=== PATIENT | male | born 1995 | race Caucasian/White ===

== ENCOUNTER 2017-04-13 15:50 | Emergency (ER) | payer OTHER ==
[2017-04-13] MEDS ORDERED: Lidocaine 1% with EPINEPHrine 1:100,000 10 ML MDV INJECT ONE (17:26)
[2017-04-13] MEDS ORDERED: Lidocaine 1% 20 ML MDV ONE (17:31)
[2017-04-13] MEDS ORDERED: Bacitracin Oint 1 GM U/D Packet TOP ONE (17:56)
[2017-04-13] MEDS ORDERED: Bacitracin Oint 1 GM U/D Packet ONE (17:57)
--- NOTE | 2017-04-13 18:10 | EDM.PDOC ---
ED HPI GENERAL MEDICAL PROBLEM - General Chief Complaint: Laceration Stated Complaint: SPLIT CHIN Time Seen by Provider: 04/13/17 17:30 Source of Information: Reports: Patient History Limitations: Reports: No Limitations - History of Present Illness INITIAL COMMENTS - FREE TEXT/NARRATIVE: 21 year old male that presents with a laceration of the chin. Patient fell and hit his chin on the floor at about 4pm. He presents for stitches. He has no other acute concerns at this time. Onset: Today - Related Data Allergies Allergy/AdvReac Type Severity Reaction Status Date / Time No Known Allergies Allergy Verified 04/13/17 16:32 Home Meds: Home Meds . [No Known Home Meds] 04/13/17 [History] Past Medical History - Past Surgical History GI Surgical History: Reports: Appendectomy Social & Family History - Family History Family Medical History: Noncontributory - Tobacco Use Smoking Status *Q: Never Smoker - Caffeine Use Caffeine Use: Reports: Soda - Recreational Drug Use Recreational Drug Use: No ED ROS GENERAL - Review of Systems Review Of Systems: See Below Constitutional: Reports: No Symptoms Respiratory: Reports: No Symptoms Cardiovascular: Reports: No Symptoms Skin: Reports: Other (laceration to chin) Neurological: Reports: No Symptoms ED EXAM, SKIN/RASH Exam: See Below Exam Limited By: No Limitations General Appearance: Alert, WD/WN, No Apparent Distress Skin: Other (4cm laceration to chin) ED SKIN PROCEDURES - Laceration/Wound Repair chin Lac/Wound length In cm: 4 Appearance: Superficial Distal NVT: Neuro & Vascular Intact Anesthetic Type: Local Local Anesthesia - Lidocaine (Xylocaine): 1% Plain Local Anesthetic Volume: 5cc Skin Prep: Saline Exploration/Debridement/Repair: Wound Explored, No Foreign Material Found Closed with: Sutures Suture Size: 3-0 # of Sutures: 3 Suture Type: Nylon Course - Vital Signs Last Recorded V/S: Last Vital Signs Temp 99.1 F 04/13/17 16:32 Pulse 98 04/13/17 16:32 Resp 18 04/13/17 16:32 BP 120/70 04/13/17 16:32 Pulse Ox 98 04/13/17 16:32 - Orders/Labs/Meds Meds: Medications Discontinued Medications Generic Name Dose Route Start Last Admin Trade Name Freq PRN Reason Stop Dose Admin Bacitracin 1 dose 04/13/17 17:56 04/13/17 17:57 Bacitracin Oint 1 Gm TOP 04/13/17 17:57 1 dose ONETIME ONE Administration Bacitracin Confirm 04/13/17 17:57 Bacitracin Oint 1 Gm Administered 04/13/17 17:58 Dose 1 dose .ROUTE .STK-MED ONE Lidocaine HCl Confirm 04/13/17 17:31 04/13/17 17:58 Xylocaine 1% Administered 04/13/17 17:32 Not Given Dose 20 ml .ROUTE .STK-MED ONE Lidocaine/Epinephrine 10 ml 04/13/17 17:26 04/13/17 17:58 Xylocaine 1% With Epinephrine 1:100,000 INJECT 04/13/17 17:27 5 ml ONETIME ONE Administration Departure - Departure Time of Disposition: 18:00 Disposition: Home, Self-Care 01 Condition: Good Clinical Impression: Laceration - Discharge Information Instructions: Laceration Care, Adult, [id number] Referrals: PCP,None [Primary Care Provider] - Forms: ED Department Discharge - Problem List & Annotations (1) Laceration SNOMED Code(s): 293801528 Code(s): WPT4479 - Status: Acute Current Visit: Yes - Problem List Review Problem List Initiated/Reviewed/Updated: Yes - Assessment/Plan Assessment:: 4cm laceration to chin Plan: Laceration repaired with 3-0 Ethilon. 3 sutures. Bacitracin applied following suture placement. Instructions given to not get suture site wet for 24 hours. Sutures will be removed in 5-7 days.
== END 2017-04-13 18:05 | disposition home or self-care (01) ==
LOC: MW.ED 15:50
DX: S01.81XA Laceration without foreign body of other part of head, initial encounter (principal); W01.118A Fall on same level from slipping, tripping and stumbling with subsequent striking against other sharp object, initial encounter
CPT/HCPCS: 12013; 99281; 99282